=== PATIENT | female | born 1980 | race African-American/Black ===

== ENCOUNTER 2017-04-13 17:43 | Inpatient (IN) | payer SELFPAY ==
[~2017-04-13] VITALS: Ht 165.1 cm; Wt 110.5 kg
[2017-04-13] MEDS ORDERED: LACTATED RINGER'S 1,000 ML IV SCH (18:14)
[2017-04-13 18:19] VITALS: Ht 165.1 cm; Wt 110.5 kg
[2017-04-13 18:20] VITALS: BP 121/74; PULSE 70; RESP 18
[2017-04-13] MEDS ORDERED: PRENAT PO (18:22)
[2017-04-13] MEDS ORDERED: ACETAMINOPHEN/CODEINE #3 TAB PO PRN (18:30)
[2017-04-13] MEDS ORDERED: METHYLERGONOVINE 0.2 MG INJ IM PRN (18:30)
[2017-04-13] MEDS ORDERED: IBUPROFEN 600 MG TAB PO PRN (18:30)
[2017-04-13] MEDS ORDERED: OXYTOCIN 30 UNITS/LR 500 ML IV SCH ×3 (18:30→19:00)
[2017-04-13] MEDS ORDERED: CARBOPROST 250 MCG INJ IM PRN (18:30)
[2017-04-13] MEDS ORDERED: BUTORPHANOL 2 MG INJ IV PRN (18:30)
[2017-04-13] MEDS ORDERED: OXYTOCIN 30 UNITS/LR 500 ML IV PRN (18:30)
[2017-04-13] MEDS ORDERED: LIDOCAINE 1% (MPF) 30 ML INJ INJ PRN (18:30)
[2017-04-13] MEDS ORDERED: MISOPROSTOL 200 MCG TAB PR PRN (18:30)
[2017-04-13 19:35] LABS: ADD SCAN DIFF NO
[2017-04-13 19:38] LABS: BASOPHILS % 0.2 % (0.0-2.0); EOSINOPHILS % 0.4 % (0.0-7.0); HEMATOCRIT 38.9 % (37.0-47.0); HEMOGLOBIN 12.7 g/dl (12.0-16.0); LYMPHOCYTES % 19.7 % (15.0-51.0); MEAN CORPUSCULAR HEMOGLOBIN 26.5 pg (29.0-33.0); MEAN CORPUSCULAR HGB CONC 32.6 g/dl (32.0-37.0); MEAN CORPUSCULAR VOLUME 81.2 fl (82.0-101.0); MEAN PLATELET VOLUME 12.2 fl (7.4-10.4); MONOCYTE # 0.8 10^3/ul (0.3-0.9); NEUTROPHIL # 7.2 10^3/ul (1.6-7.5); NEUTROPHILS % 70.8 % (39.0-77.0); PLATELET COUNT 152 10^3/UL (140-415); RED BLOOD COUNT 4.79 10^6/ul (4.20-5.40); WHITE BLOOD COUNT 10.2 10^3/ul (4.8-10.8)
[2017-04-13 20:28] LABS: INR 0.86; PROTIME 11.7 Sec (12.2-14.2); PT RATIO 0.9
[2017-04-13 20:29] LABS: PARTIAL THROMBOPLASTIN TIME 29.5 Sec (25.0-35.0)
[2017-04-13] MEDS: LACTATED RINGER'S 1,000 ML IV SCH (20:42)
[2017-04-13] MEDS ORDERED: LACTATED RINGER'S 1,000 ML IV PRN (22:00)
--- NOTE | 2017-04-13 22:09 | HP ---
Date/Time of Note Date/Time of Note DATE: 04/13/17 TIME: 22:07 OB - History Hx of Present Free Text/Dictation at 40 wks admitted with SCOTTY of 5 for induction. having occassional uterine ctx. started receibivng care 3 weeks ago Care: Limited Care Ultrasounds: Normal mid trimester US Obstetrical Complications: None Medical Complications: None Past Family/Social History * Past Medical, Surgical, Family and Obstetric Histories reviewed from chart. OB Admission Exam Vital Signs Vital Signs Vital Signs Date Time Temp Pulse Resp B/P Pulse Ox O2 Delivery O2 Flow Rate FiO2 04/13/17 18:20 98.0 70 18 121/74 Room Air Physical Exam HEENT: WNL Heart: Rhythm Normal Lungs: Clear, Equal Abdomen: WNL Extremities: Normal Reflexes: Normal Cervical Dilatation: 1cm Effacement: 50% Station: -2 Membranes: Ruptured Amniotic Fluid: Clear Heart Rate: 130's Accelerations: Accelerations Present Decelerations: Variable Decelerations Contractions on Admission: 6-10 Minutes Apart Intensity: Mild Last 72 hours Lab Results CBC & BMP 04/13/17 19:15 OB Assessment/Plan Reason for admission: induction of labor (for low SCOTTY) Plan: Induction KIRSTEN EM MD Apr 13, 2017 22:09
[2017-04-14] MEDS: LACTATED RINGER'S 1,000 ML IV SCH (02:44)
[2017-04-14 03:15] LABS: ALBUMIN 4.3 g/dl (3.3-4.9); ALBUMIN/GLOBULIN RATIO 1.19; BILIRUBIN,INDIRECT 0.3 mg/dl (0-1.1); BILIRUBIN,TOTAL 0.3 mg/dl (0.2-1.3); CALCIUM 9.5 mg/dl (8.4-10.2); CREATININE 0.52 mg/dl (0.44-1.00); POTASSIUM 5.1 mmol/L (3.5-5.1); TOTAL PROTEIN 7.9 g/dl (6.1-8.1); URIC ACID 4.3 mg/dl (3.1-7.9)
--- NOTE | 2017-04-14 06:10 | LDN ---
Date/Time of Note Date/Time of Note DATE: 04/14/17 TIME: 06:09 Delivery Summary term preg. nsd Placenta Delivered: Spontaneously Meconium: none Episiotomy: No Perineal laceration: 1 Anesthesia type: Local Estimated blood loss: 350 Sponge & Needle done & correct: Yes All needle counts correct: Yes Any foreign bodies felt in the: No Problems: KIRSTEN EM MD Apr 14, 2017 06:10
--- NOTE | 2017-04-14 06:11 | PD.PPDC ---
[employer] Discharge Instruction Condition Patient Condition: Good Diet Diet: Resume Regular Diet Activity/Restrictions Activity: Normal Activity May Shower Restrictions: No Exercising No Lifting No Driving No Sexual Activity Nothing in the Vagina No [place] No Tampons, douche Wound/Drain Care Instructions Wound/Drain Care Instructions: Wash with soap and water Keep clean and dry Follow-up Follow-up with Physician: Week/Weeks Return to clinic for MANAGER LIBRARY Instructions: Fever greater than 101 Chills Worsening abdominal pain Excessive Vaginal Bleeding More than 2 pads per hour Unable to tolerate diet OB Instructions: Breast Tenderness Depression Blurried Vision Headache Surgical Instructions: Incisional Drainage Incisional Redness KIRSTEN EM MD Apr 14, 2017 06:11
--- NOTE | 2017-04-14 06:13 | DS ---
Date/Time of Note Date/Time of Note DATE: 04/14/17 TIME: 06:12 Discharge Summary Admission/Discharge Info Admit Date/Time Apr 13, 2017 at 17:43 Discharge Date/Time Discharge Diagnosis term preg Patient Condition: Good Hospital Course unremarkable Home Meds Reported Medications Multivit/Min/Fol Ac/Iron/Pren* ( S*) 1 Tab Tab, 1 TAB PO DAILY, TAB 04/13/17 Primary Care Provider Not On Staff Doctor Pending Labs Laboratory Tests Test 04/13/17 19:15 White Blood Count 10.210^3/ul (4.8-10.8) Red Blood Count 4.7910^6/ul (4.20-5.40) Hemoglobin 12.7g/dl (12.0-16.0) Hematocrit 38.9% (37.0-47.0) Mean Corpuscular Volume 81.2fl (82.0-101.0) Mean Corpuscular Hemoglobin 26.5pg (29.0-33.0) Mean Corpuscular Hemoglobin Concent 32.6g/dl (32.0-37.0) Red Cell Distribution Width 15.0% (11.5-14.5) Platelet Count 83185^3/UL (140-415) Mean Platelet Volume 12.2fl (7.4-10.4) Neutrophils % 70.8% (39.0-77.0) Lymphocytes % 19.7% (15.0-51.0) Monocytes % 8.0% (0.0-11.0) Eosinophils % 0.4% (0.0-7.0) Basophils % 0.2% (0.0-2.0) Nucleated Red Blood Cells % 0.0/100WBC (0.0-0.0) Neutrophils # 7.210^3/ul (1.6-7.5) Lymphocytes # 2.010^3/ul (0.8-2.9) Monocytes # 0.810^3/ul (0.3-0.9) Eosinophils # 0.010^3/ul (0.0-0.5) Basophils # 0.010^3/ul (0.0-0.1) Nucleated Red Blood Cells # 0.010^3/ul (0.0-0.0) Prothrombin Time 11.7Sec (12.2-14.2) Prothrombin Time Ratio 0.9 INR International Normalized Ratio 0.86 Activated Partial Thromboplast Time 29.5Sec (25.0-35.0) Sodium Level 136mmol/L (135-144) Potassium Level 5.1mmol/L (3.5-5.1) Chloride Level 110mmol/L (97-110) Carbon Dioxide Level 20mmol/L (21-31) Anion Gap 11 (8-16) Blood Urea Nitrogen 8mg/dl (7-20) Creatinine 0.52mg/dl (0.44-1.00) Glucose Level 70mg/dl (70-220) Uric Acid 4.3mg/dl (3.1-7.9) Calcium Level 9.5mg/dl (8.4-10.2) Total Bilirubin 0.3mg/dl (0.2-1.3) Direct Bilirubin 0.00mg/dl (0.00-0.20) Indirect Bilirubin 0.3mg/dl (0-1.1) Aspartate Amino Transf (AST/SGOT) 48IU/L (15-46) Alanine Aminotransferase (ALT/SGPT) 12IU/L (13-69) Alkaline Phosphatase 77IU/L (42-121) Total Protein 7.9g/dl (6.1-8.1) Albumin 4.3g/dl (3.3-4.9) Globulin 3.60g/dl (1.3-3.2) Albumin/Globulin Ratio 1.19 Hepatitis B Surface Antigen NEGATIVE (NEGATIVE) KIRSTEN EM MD Apr 14, 2017 06:13
[2017-04-14] MEDS ORDERED: BENZOCAINE 20% 56 ML SPRAY TOP PRN (08:30)
[2017-04-14] MEDS ORDERED: ZOLPIDEM 5 MG TAB PO PRN (08:30)
[2017-04-14] MEDS ORDERED: CARBOPROST 250 MCG INJ IM PRN (08:30)
[2017-04-14] MEDS ORDERED: OXYTOCIN 30 UNITS/LR 500 ML IV PRN (08:30)
[2017-04-14] MEDS ORDERED: MISOPROSTOL 200 MCG TAB PR PRN (08:30)
[2017-04-14] MEDS ORDERED: METHYLERGONOVINE 0.2 MG INJ IM PRN (08:30)
[2017-04-14] MEDS ORDERED: LANOLIN 7 GM TUBE TOP PRN (08:30)
[2017-04-14] MEDS ORDERED: WITCH HAZEL/GLYCERIN PAD PR PRN (08:30)
[2017-04-14] MEDS ORDERED: ACETAMINOPHEN/CODEINE #3 TAB PO PRN (08:30)
[2017-04-14] MEDS ORDERED: ACETAMINOPHEN 325 MG TAB PO PRN (08:30)
[2017-04-14] MEDS ORDERED: SENNA/DOCUSATE NA (8.6MG/50MG) TAB PO PRN (08:30)
[2017-04-14] MEDS ORDERED: MAGNESIUM HYDROXIDE 30ML CUP PO PRN (08:30)
[2017-04-14] MEDS ORDERED: DIPHENHYDRAMINE 25 MG CAP PO PRN (08:30)
[2017-04-14 08:55] VITALS: BP 116/68; PULSE 72; RESP 20
[2017-04-14] MEDS: OXYTOCIN 30 UNITS/LR 500 ML IV SCH ×2 (09:53→12:18)
[2017-04-14 12:30] VITALS: BP 120/68; PULSE 76; RESP 18
[2017-04-14] MEDS: IBUPROFEN 800 MG TAB PO SCH ×3 (13:15→23:36)
[2017-04-14] MEDS: LACTATED RINGER'S 1,000 ML IV* SCH ×2 (14:08→19:00)
[2017-04-14 16:00] VITALS: BP 95/53; PULSE 95; RESP 20
[2017-04-14 19:30] VITALS: BP 109/67; PULSE 76; RESP 19
[2017-04-15] MEDS: LACTATED RINGER'S 1,000 ML IV* SCH (00:18)
[2017-04-15 04:00] VITALS: BP 109/62; PULSE 85
[2017-04-15] MEDS: IBUPROFEN 800 MG TAB PO SCH ×3 (05:41→18:26)
[2017-04-15 08:00] VITALS: BP 121/79; PULSE 75; RESP 18
[2017-04-15 08:12] LABS: BASOPHILS % 0.2 % (0.0-2.0); EOSINOPHILS # 0.1 10^3/ul (0.0-0.5); EOSINOPHILS % 0.4 % (0.0-7.0); HEMATOCRIT 35.5 % (37.0-47.0); HEMOGLOBIN 11.3 g/dl (12.0-16.0); LYMPHOCYTES % 11.6 % (15.0-51.0); MEAN CORPUSCULAR HEMOGLOBIN 26.2 pg (29.0-33.0); MEAN CORPUSCULAR HGB CONC 31.8 g/dl (32.0-37.0); MEAN CORPUSCULAR VOLUME 82.2 fl (82.0-101.0); MEAN PLATELET VOLUME 12.9 fl (7.4-10.4); MONOCYTES % 5.9 % (0.0-11.0); NEUTROPHILS % 81.3 % (39.0-77.0); PLATELET COUNT 145 10^3/UL (140-415); RED BLOOD COUNT 4.32 10^6/ul (4.20-5.40); RED CELL DISTRIBUTION WIDTH 15.3 % (11.5-14.5); WHITE BLOOD COUNT 17.3 10^3/ul (4.8-10.8)
[2017-04-15 08:16] LABS: ADD SCAN DIFF NO
--- NOTE | 2017-04-15 10:00 | DS ---
Date/Time of Note Date/Time of Note Laboratory Tests Test 04/15/17 06:55 White Blood Count 17.310^3/ul Red Blood Count 4.3210^6/ul Hemoglobin 11.3g/dl Hematocrit 35.5% Mean Corpuscular Volume 82.2fl Mean Corpuscular Hemoglobin 26.2pg Mean Corpuscular Hemoglobin Concent 31.8g/dl Red Cell Distribution Width 15.3% Platelet Count 03947^3/UL Mean Platelet Volume 12.9fl Neutrophils % 81.3% Lymphocytes % 11.6% Monocytes % 5.9% Eosinophils % 0.4% Basophils % 0.2% Nucleated Red Blood Cells % 0.0/100WBC Neutrophils # 14.010^3/ul Lymphocytes # 2.010^3/ul Monocytes # 1.010^3/ul Eosinophils # 0.110^3/ul Basophils # 0.010^3/ul Nucleated Red Blood Cells # 0.010^3/ul Current Medications Medications (Trade) Dose Ordered Sig/Vj Route PRN Reason Start Time Stop Time Status Last Admin Dose Admin Lactated Ringer's (Lr) 1,000 ml @ 125 mls/hr Q8H IV 04/13/17 18:14 04/14/17 08:21 DC 04/14/17 02:44 Butorphanol Tartrate (Stadol) 2 mg Q2H PRN IV PAIN 04/13/17 18:30 04/14/17 08:21 DC 04/14/17 04:57 Lidocaine 30 ml 30 ml ONCE PRN INJ EPISIOTOMY/TEARING 04/13/17 18:30 04/14/17 08:21 DC Oxytocin/Lactated Ringer's 500 ml @ 125 mls/hr ONCE -MAY REPEAT X1 IV 04/13/17 18:30 04/14/17 08:21 DC 04/14/17 06:07 Oxytocin/Lactated Ringer's 500 ml @ 125 mls/hr ONCE IV 04/13/17 18:30 04/14/17 08:21 DC 04/14/17 06:25 Ibuprofen (Motrin) 600 mg ONCE PRN PO Mild Pain (Pain Score 1-3) 04/13/17 18:30 04/14/17 08:21 DC Acetaminophen/ Codeine Phosphate 2 tab 2 tab ONCE PRN PO Moderate to Severe Pain (4-10) 04/13/17 18:30 04/14/17 08:21 DC Lactated Ringer's 1,000 ml @ 2,000 mls/hr Q30M PRN IV PRE-EPIDURAL BOLUS 04/13/17 22:00 04/14/17 08:21 DC Oxytocin/Lactated Ringer's 500 ml @ 0 mls/hr ONCE PRN IV For Hemorrhage Management 04/13/17 18:30 04/14/17 08:21 DC Methylergonovine Maleate (Methergine) 0.2 mg ONCE PRN IM VAGINAL BLEEDING 04/13/17 18:30 04/14/17 08:21 DC Carboprost Tromethamine (Hemabate) 250 mcg ONCE PRN IM VAGINAL BLEEDING 04/13/17 18:30 04/14/17 08:21 DC Misoprostol 1000 mcg 1,000 mcg ONCE PRN NE VAGINAL BLEEDING 04/13/17 18:30 04/14/17 08:20 DC Lactated Ringer's 1,000 ml @ 125 mls/hr Q8H IV 04/13/17 18:14 UNV Oxytocin/Lactated Ringer's 500 ml @ 0 mls/hr TITRATE IV 04/13/17 19:00 04/14/17 08:20 DC 04/13/17 20:47 Oxytocin/Lactated Ringer's 500 ml @ 125 mls/hr Q4H IV 04/14/17 08:18 04/14/17 16:17 DC 04/14/17 09:53 Lactated Ringer's (Lr) 1,000 ml @ 125 mls/hr Q8H IV* 04/14/17 08:18 04/15/17 08:55 DC 04/14/17 14:08 Ibuprofen (Motrin) 800 mg Q6 PO 04/14/17 12:00 04/15/17 05:41 Acetaminophen/ Codeine Phosphate (Tylenol No.3) 2 tab Q4H PRN PO PAIN LEVEL 6-04/14/17 08:30 Diphenhydramine HCl (Benadryl) 25 mg Q6H PRN PO PRURITUS 04/14/17 08:30 Zolpidem Tartrate (Ambien) 10 mg QHS PRN PO INSOMNIA 04/14/17 08:30 Senna/Docusate Sodium (Senokot-S) 1 tab BID PRN PO CONSTIPATION 04/14/17 08:30 Magnesium Hydroxide (Milk Of Mag) 30 ml Q12H PRN PO CONSTIPATION 04/14/17 08:30 Witch Estrellita/ Glycerin (Tucks Pads) 1 pad BEDSIDE MEDICATION PRN NE HEMORRHOID/EPISIOTMY PAIN 04/14/17 08:30 Benzocaine (Dermoplast [place]) 1 spray BEDSIDE MEDICATION PRN TOP HEMORRHOID/EPISIOTMY PAIN 04/14/17 08:30 Lanolin (Zoz-W-Yojiww) 1 applic BEDSIDE MEDICATION PRN TOP BEDSIDE FOR KARLIE TO NIPPLES 04/14/17 08:30 Measles/Mumps/ Rubella Vaccine Live (Mmr Ii Vaccine) 0.5 ml ONCE ONCE SC* 04/16/17 09:00 04/16/17 09:01 Diphtheria/ Tetanus/Acell Pertussis (Adacel) 0.5 ml ONCE ONCE IM* 04/16/17 09:00 04/16/17 09:01 Varicella Virus Vaccine Live (Varivax Vaccine With Diluent) 1,350 unit ONCE ONCE SC* 04/16/17 09:00 04/16/17 09:01 Acetaminophen 650 mg 650 mg Q4H PRN PO ELEVATED TEMPERATURE 04/14/17 08:30 Oxytocin/Lactated Ringer's 500 ml @ 0 mls/hr ONCE PRN IV For Hemorrhage Management 04/14/17 08:30 Methylergonovine Maleate (Methergine) 0.2 mg ONCE PRN IM VAGINAL BLEEDING 04/14/17 08:30 Carboprost Tromethamine (Hemabate) 250 mcg ONCE PRN IM VAGINAL BLEEDING 04/14/17 08:30 Misoprostol (Cytotec) 1,000 mcg ONCE PRN NE VAGINAL BLEEDING 04/14/17 08:30 DATE: 04/15/17 TIME: 09:54 Obstetrical Discharge Record Final Diagnosis Final Diagnosis: Term delivered Vaginal Delivery Obstetrical Delivery: Spontaneous Condition on Discharge Physical Assessment Voiding: Yes Bowel Movement: Yes Breast: Soft, non-tender Fundus: Firm Abdomen and Incision: soft Episiotomy: first degree laceration is healing well Her WBC is 17.3 Will repeat CBC if ok will be able to go home based on her request ([employer] payer). Calf Tenderness: No Patient Condition: Good ALLI KELLY MD Apr 15, 2017 10:00
[2017-04-15 14:21] LABS: BASOPHILS % 0.2 % (0.0-2.0); EOSINOPHILS # 0.1 10^3/ul (0.0-0.5); EOSINOPHILS % 0.7 % (0.0-7.0); HEMATOCRIT 39.4 % (37.0-47.0); HEMOGLOBIN 12.5 g/dl (12.0-16.0); LYMPHOCYTES # 2.3 10^3/ul (0.8-2.9); LYMPHOCYTES % 14.1 % (15.0-51.0); MEAN CORPUSCULAR HEMOGLOBIN 26.3 pg (29.0-33.0); MEAN CORPUSCULAR HGB CONC 31.7 g/dl (32.0-37.0); MEAN CORPUSCULAR VOLUME 82.8 fl (82.0-101.0); MEAN PLATELET VOLUME 12.5 fl (7.4-10.4); MONOCYTE # 0.9 10^3/ul (0.3-0.9); MONOCYTES % 5.5 % (0.0-11.0); NEUTROPHIL # 12.9 10^3/ul (1.6-7.5); NEUTROPHILS % 78.9 % (39.0-77.0); PLATELET COUNT 164 10^3/UL (140-415); RED BLOOD COUNT 4.76 10^6/ul (4.20-5.40); RED CELL DISTRIBUTION WIDTH 15.7 % (11.5-14.5); WHITE BLOOD COUNT 16.4 10^3/ul (4.8-10.8)
[2017-04-15 14:43] LABS: ADD SCAN DIFF NO
[2017-04-15 16:00] VITALS: BP 111/73; PULSE 77; RESP 19
[2017-04-16] MEDS ORDERED: MEASLES,MUMPS,RUBELLA VACCINE INJ SC* ONE (09:00)
[2017-04-16] MEDS ORDERED: VARICELLA VACCINE LIVE/PF 1,350 UNIT/0.5 ML ML SC* ONE (09:00)
[2017-04-16] MEDS ORDERED: DIPHTH/TET/ACEL PERTUSS (ADULT) 0.5 ML VIAL IM* ONE (09:00)
== END 2017-04-15 18:50 | disposition home or self-care (01) | DRG 775 ==
LOC: L-D 17:43 → PP1 04-14 08:42
PROVIDERS: ADMIT Obstetrics & Gynecology; ATTEND Obstetrics & Gynecology
PROC: 0HQ9XZZ Repair Perineum Skin, External Approach (ICD-10-PCS; principal; 2017-04-14)
PROC: 10E0XZZ Delivery of Products of Conception, External Approach (ICD-10-PCS; 2017-04-14)
DX: O48.0 Post-term pregnancy (principal); Z37.0 Single live birth; Z3A.40 40 weeks gestation of pregnancy
CPT/HCPCS: 80053; 84560; 85025; 85610; 85730; 86592; 86900; 86901; 87340; 99464; J0595; J2590; J7120